=== PATIENT | female | born 1990 | race Caucasian/White ===

== ENCOUNTER 2022-09-09 23:37 | Emergency (ER) | payer OTHER, SELFPAY ==
--- NOTE | ~2022-09-09 | XR_ITS ---
EXAMINATION: XR CHEST CLINICAL INFORMATION: Pain COMPARISON: None TECHNIQUE: 2 views of the chest were obtained. FINDINGS: Hyperexpanded lungs. There is no focal consolidation, edema, or effusion. No pneumothorax. The cardiomediastinal silhouette is within normal limits. No acute osseous abnormality. XR/XR chest 2V IMPRESSION: Hyperexpanded lungs. No focal consolidation.
[2022-09-09 23:41] VITALS: BP 151/90; PULSE 92; RESP 18; TEMP 37; O2SAT 100; BMI 20.1
--- NOTE | 2022-09-09 23:46 | ECG_ITS ---
Test Reason : CHEST PAIN Blood Pressure : / mmHG Vent. Rate : 088 BPM Atrial Rate : 088 BPM P-R Int : 246 ms QRS Dur : 096 ms QT Int : 360 ms P-R-T Axes : 059 047 035 degrees QTc Int : 435 ms Sinus rhythm with 1st degree A-V block Incomplete right bundle branch block Borderline ECG No previous ECGs available Referred By: Generic ED Physician Electronically Signed By:Fantsama Rice
[2022-09-10 00:27] LABS: MANUAL DIFF FLAG NO
[2022-09-10 00:28] LABS: Basophils Percent Auto 0.4 % (0-2); Eosinophils Percent Auto 0.8 % (0-4); Hematocrit 36.9 % (37.0-47.0); Hemoglobin 12.7 g/dl (12.0-16.0); Imm Gran Abs Auto 0.01 X10*3/uL (0.00-0.03); Imm Gran Pct Auto 0.2 % (0.0-0.4); Lymphocytes Absolute Auto 2.2 X10*3/uL (1.2-4.9); Lymphocytes Percent Auto 42.6 % (20-40); Mean Corpuscular HGB Conc 34.4 g/dl (31.0-35.0); Mean Corpuscular Hemoglobin 31.1 pg (27.0-33.0); Mean Corpuscular Volume 90.4 fL (80.0-98.0); Mean Platelet Volume 10.4 fL (9.4-12.3); Monocytes Absolute Auto 0.4 X10*3/uL (0.1-1.2); Monocytes Percent Auto 7.3 % (2-11); Neutrophils Absolute Auto 2.5 x10*3/uL (2.0-8.3); Neutrophils Percent Auto 48.7 % (45-73); Platelet Count 220 X10*3/uL (160-400); Red Blood Count 4.08 X10*6/uL (4.20-5.50); Red Cell Distribution Width 11.9 % (11.0-16.0); White Blood Count 5.2 X10*3/uL (4.8-10.8)
[2022-09-10 00:42] LABS: Anion Gap 14 (12-20); Blood Urea Nitrogen 13 mg/dL (9-16); Calcium 9.3 mg/dL (8.4-10.2); Carbon Dioxide 22 mmol/L (22-29); Chloride 110 mmol/L (96-108); Creatinine Clr Calc Pharmacy 88.1; Estimated Glomerular Filt Rate > 60; Glucose Random 107 mg/dL (60-115); Potassium 3.9 mmol/L (3.3-5.1); Sodium 142 mmol/L (135-145)
--- NOTE | 2022-09-10 00:43 | ED.CHESTPAIN ---
HPI - Chest Pain General Chief Complaint: Chest Pain Stated Complaint: chest pain Time Seen by Provider: 09/10/22 00:15 Source: patient, RN notes reviewed and old records reviewed Mode of arrival: ambulatory Limitations: no limitations History of Present Illness HPI narrative: 32-year-old female with past medical history significant for anxiety presents for evaluation of chest pain. Patient reports around 8:00 p.m. she noticed chest tightness while he was at work. She reports that her symptoms worsened and she started to experience ?jaw pain. ? She then states that the pain radiated into her left wrist. She states the pain is ?not severe this may be a 4/10. ? The patient states that she has a history of anxiety but ?it never persists like this. ? She reports that she is quite concerned because ?I have an uncle who in his mid 30s from a heart attack. ? She also reports that she is on oral contraception Related Data Allergies Allergy/AdvReac Type Severity Reaction Status Date / Time No Known Allergies Allergy Verified 09/09/22 23:45 Review of Systems Constitutional: Constitutional: Reports as per HPI, Denies chills and Denies fatigue Cardiovascular: Cardiovascular: Reports chest pain, Denies rapid heart rate, Denies irregular heart rhythm, Reports radiating jaw, neck or arm pain, Denies palpitations and Denies dyspnea Respiratory: Respiratory: Denies cough and Denies dyspnea Gastrointestinal: Gastrointestinal: Denies abdominal pain, Denies constipation and Denies vomiting Genitourinary: Genitourinary: Denies dysuria Endocrine: Endocrine: Denies fatigue and Denies palpitations [facility] Social History Social History Advance Directives: No Physical Exam Vital Signs: Vital Signs: Last Vital Signs Temp 98.6 F 09/09/22 23:41 Pulse 92 09/09/22 23:41 Resp 18 09/09/22 23:41 BP 151/90 H 09/09/22 23:41 Pulse Ox 100 09/09/22 23:41 O2 Del Method 09/09/22 23:41 BMI result Body Mass Index 20.1 Const: General: cooperative, healthy appearing, comfortable and no acute distress Nutritional Appearance: thin Orientation/consciousness: patient oriented x3 HEENT: Head: Yes normocephalic and Yes atraumatic Eyes: Eyelids: Yes eyelids normal Conjunctivae: conjunctivae normal Sclerae: sclerae normal Corneas: corneas normal Pupils: Equal, round and reactive pupils present and Pupil accommodation reflex normal EOM: EOMs intact bilaterally Neck: Neck: Yes full ROM, Yes trachea midline and No anterior neck swelling Chest: Other: No chest wall tenderness Resp: Effort & Inspection: normal respiratory effort, able to speak in complete sentences and normal respiratory pattern Auscultation: clear to auscultation bilaterally Cardio: Rate: regular rate Rhythm: regular rhythm GI: Inspection: No distended Palpation (GI): Soft to palpation, nontender and no guarding Auscultation: normoactive bowel sounds Skin: General skin exam: no rashes or lesions noted Neuro: General: patient oriented x3 Cranial nerves: Yes Equal, round and reactive pupils present Course Reevaluation(s) Reevaluation #1: His troponin and repeat troponin both less than 7, negative. Patient is currently chest pain-free, EKG was nonischemic, she has no risk factors for ACS exception of family history. I discussed all this with the patient and she is stable for discharge at this time. She will follow-up with her PCP Time: 02:04 Medications Administered Discontinued Medications Generic Name Dose Route Start Last Admin Trade Name Freq PRN Reason Stop Dose Admin Aspirin 324 mg 09/10/22 00:46 09/10/22 01:14 Aspirin 81 Mg Tab.Chew PO 09/10/22 00:47 324 mg ONCE ONE Administration Medical Decision Making Medical Decision Making [facility] Narrative: This is a healthy 32-year-old female presenting for evaluation chest pain. Her symptoms started at 8:00 p.m., about 4 hours prior to arrival. She was at work when the symptoms started with minimal exertion. She reports radiation to the jaw and hand. The patient is quite concerned that she has family history of early onset coronary artery disease with [place]. the patient's EKG is normal sinus rhythm with a rate of 80 beats per minute. Right bundle-branch block. No ST segment elevations or depressions. Mood check basic labs including a troponin. A D-dimer will be ordered as the patient is on oral contraception cannot be ruled out for PE with PERC criteria. I feel this is less likely however. Will get a repeat troponin at 3:20 a.m. as well. Patient was given a dose of aspirin. A chest x-ray is pending. Differential Diagnosis Chest pain Anxiety GERD Chest wall strain ACS less likely PE less likely Lab Data 09/10/22 00:22 09/10/22 00:22 Labs: Lab Results 09/10/22 09/10/22 09/10/22 Range/Units 00:22 00:22 00:22 WBC 5.2 (4.8-10.8) X10*3/uL RBC 4.08 L (4.20-5.50) X10*6/uL Hgb 12.7 (12.0-16.0) g/dl Hct 36.9 L (37.0-47.0) % MCV 90.4 (80.0-98.0) fL MCH 31.1 (27.0-33.0) pg MCHC 34.4 (31.0-35.0) g/dl RDW 11.9 (11.0-16.0) % Plt Count 220 (160-400) X10*3/uL MPV 10.4 (9.4-12.3) fL Immature Gran % (Auto) 0.2 (0.0-0.4) % Neut % (Auto) 48.7 (45-73) % Lymph % (Auto) 42.6 H (20-40) % [place] % (Auto) 7.3 (2-11) % Eos % (Auto) 0.8 (0-4) % Baso % (Auto) 0.4 (0-2) % Lymph # (Auto) 2.2 (1.2-4.9) X10*3/uL [place] # (Auto) 0.4 (0.1-1.2) X10*3/uL Eos # (Auto) 0.0 (0.0-0.4) X10*3/uL Baso # (Auto) 0.0 (0.0-0.2) X10*3/uL Abs Immat Gran (auto) 0.01 (0.00-0.03) X10*3/uL Absolute Neuts (auto) 2.5 (2.0-8.3) x10*3/uL Absolute Nucleated RBC 0.000 (0.0-0.012) X10*3/uL Nucleated RBC % (auto) 0.0 (0.0-0.2) /100WBC Sodium 142 (135-145) mmol/L Potassium 3.9 (3.3-5.1) mmol/L Chloride 110 H (96-108) mmol/L Carbon Dioxide 22 (22-29) mmol/L Anion Gap 14 (12-20) BUN 13 (9-16) mg/dL Creatinine 0.82 (0.5-1.4) mg/dL Estim Creat Clear Calc 88.1 Estimated GFR > 60 Random Glucose 107 (60-115) mg/dL Calcium 9.3 (8.4-10.2) mg/dL Troponin I High Sens 3.4 (<3.5-17.0) ng/L Beta HCG, Quant < 2 mIU/mL 09/10/22 Range/Units 01:33 WBC (4.8-10.8) X10*3/uL RBC (4.20-5.50) X10*6/uL Hgb (12.0-16.0) g/dl Hct (37.0-47.0) % MCV (80.0-98.0) fL MCH (27.0-33.0) pg MCHC (31.0-35.0) g/dl RDW (11.0-16.0) % Plt Count (160-400) X10*3/uL MPV (9.4-12.3) fL Immature Gran % (Auto) (0.0-0.4) % Neut % (Auto) (45-73) % Lymph % (Auto) (20-40) % [place] % (Auto) (2-11) % Eos % (Auto) (0-4) % Baso % (Auto) (0-2) % Lymph # (Auto) (1.2-4.9) X10*3/uL [place] # (Auto) (0.1-1.2) X10*3/uL Eos # (Auto) (0.0-0.4) X10*3/uL Baso # (Auto) (0.0-0.2) X10*3/uL Abs Immat Gran (auto) (0.00-0.03) X10*3/uL Absolute Neuts (auto) (2.0-8.3) x10*3/uL Absolute Nucleated RBC (0.0-0.012) X10*3/uL Nucleated RBC % (auto) (0.0-0.2) /100WBC Sodium (135-145) mmol/L Potassium (3.3-5.1) mmol/L Chloride (96-108) mmol/L Carbon Dioxide (22-29) mmol/L Anion Gap (12-20) BUN (9-16) mg/dL Creatinine (0.5-1.4) mg/dL Estim Creat Clear Calc Estimated GFR Random Glucose (60-115) mg/dL Calcium (8.4-10.2) mg/dL Troponin I High Sens 5.9 D (<3.5-17.0) ng/L Beta HCG, Quant mIU/mL Discharge Plan Discharge Clinical Impression: Chest pain Patient Disposition: Home, Self-Care Instructions: Chest Pain (ED) Additional Instructions: Your workup in the emergency department today was reassuring. This included blood work, chest x-ray and EKG. You may use ibuprofen or Tylenol for any further pain. Call your doctor to schedule follow-up
[2022-09-10 00:51] LABS: Troponin-I High Sensitivity 3.4 ng/L (<3.5-17.0)
[2022-09-10] MEDS: Aspirin 81 MG TAB.CHEW 324 MG PO (01:14)
[2022-09-10 01:20] LABS: HCG Quantitative < 2 mIU/mL
[2022-09-10 02:01] LABS: Troponin-I High Sensitivity 5.9 ng/L (<3.5-17.0)
[2022-09-10 02:05] LABS: D Dimer High Sensitivity < 150 NG/ML
== END 2022-09-10 02:29 | disposition home or self-care (01) ==
PROVIDERS: Physician Assistant; Emergency Provider Internal Medicine
DX: R07.89 Other chest pain (principal); F41.9 Anxiety disorder, unspecified; Z79.899 Other long term (current) drug therapy
CPT/HCPCS: 36415; 71046; 80048; 84484; 84702; 85025; 85379; 93005; 99283